=== PATIENT | female | born 1960 | race Caucasian/White ===

== ENCOUNTER → 2016-09-01 | Outpatient (REF) | payer BC | LOC: M SFHCWAGY 14:50 | PROVIDERS: ATTEND Nurse Practitioner Women's Health | DX: Z12.4 Encounter for screening for malignant neoplasm of cervix (principal) ==

== ENCOUNTER → 2016-10-27 | Outpatient (REF) | payer BC | LOC: M SFHCPLAZ 09:25 | PROVIDERS: ATTEND Family Medicine | DX: E66.3 Overweight (principal); Z13.220 Encounter for screening for lipoid disorders ==

== ENCOUNTER → 2016-11-02 | Outpatient (REF) | payer BC | LOC: M SFHCPLAZ 11:55 | PROVIDERS: ATTEND Family Medicine | DX: D49.2 Neoplasm of unspecified behavior of bone, soft tissue, and skin (principal) ==

== ENCOUNTER → 2016-12-07 | Outpatient (CLI) | payer BC ==
--- NOTE | 2016-12-07 12:23 | REP ---
BILATERAL MAMMOGRAM: COMPARISON: 02/12/2014 as well as other prior exams. There is moderate fibroglandular tissue fairly symmetrically bilaterally. However, there is a 7 mm nodular density medially on the left CC view. This is questionably seen on one of the left MLO views in the mid third of the breast at the level of the nipple. No other mass is seen. No clustered microcalcifications are seen. IMPRESSION: ACR 0 incomplete. There appears to be a 7 mm nodular density medially on the left CC view, not clearly seen on the left MLO view, possibly at the level of the nipple in the mid third of the left breast. Recommend spot compression views and ultrasound to further evaluate. BI-RADS/ACR category 0 mammogram, incomplete. Additional imaging and/or prior images are needed before a final assessment can be assigned. This mammogram was interpreted with the aid of an FDA-approved computer-aided detection system. The patient states she/he had a clinical breast exam in 08/2016. The patient letter being requested is M0. Signed by Ralph Jolly MD 12/07/2016 04:02 P
== END ==
LOC: M RAD 09:08
PROVIDERS: ATTEND Nurse Practitioner Women's Health
DX: R92.2 Inconclusive mammogram (principal)

== ENCOUNTER → 2016-12-17 | Outpatient (CLI) | payer BC ==
--- NOTE | 2016-12-17 14:50 | REP ---
DIGITAL DIAGNOSTIC UNILATERAL LEFT BREAST MAMMOGRAPHY WITH CAD: HISTORY: Screening mammography December 07, 2016 was BIRADS category 0 because of a possible 7 mm nodular neodensity. Diagnostic left breast mammography was recommended. Comparison is also made with prior mammography from February 12, 2014 and April 06, 2012. MAMMOGRAPHIC FINDINGS: Magnified focal spot compression CC, MLO and true ML views of the left breast are obtained. These fail to show the nodular density previously noted in the medial left breast. Breast parenchymal markings are unchanged and unremarkable. Non magnified rolled CC views were obtained and these also failed to reveal the density. This is felt to have been spurious due to summation shadow. IMPRESSION: BIRADS category 2 benign left breast mammography. Repeat screening mammography recommended 1 year. BI-RADS/ACR category 2 mammogram. Benign finding(s). Routine annual screening mammography (for women over age 40). This mammogram was interpreted with the aid of an FDA-approved computer-aided detection system. The patient states she/he had a clinical breast exam in August 2016. The patient letter being requested is M#1. Signed by Trever Pizarro MD 12/18/2016 10:02 A
== END ==
LOC: M RAD 12:28
PROVIDERS: ATTEND Nurse Practitioner Women's Health
DX: N63 Unspecified lump in breast (principal)

== ENCOUNTER → 2019-10-10 | Outpatient (REF) | payer BC ==
[2019-10-10 12:56] LABS: ALBUMIN 3.5 GM/DL (3.2-5.2); ALT/SGPT 26 U/L (12-78); BILIRUBIN,TOTAL 0.6 MG/DL (0.2-1.0); BLOOD UREA NITROGEN 21 MG/DL (7-18); CALCIUM LEVEL 8.8 MG/DL (8.5-10.1); CARBON DIOXIDE LEVEL 29 MEQ/L (21-32); CHLORIDE LEVEL 108 MEQ/L (98-107); CHOLESTEROL LEVEL 208 MG/DL (<200); CHOLESTEROL RISK RATIO 2.363 (<5); CREATININE FOR GFR 0.87 MG/DL (0.55-1.30); GLOMERULAR FILTRATION RATE > 60.0 (>51); GLUCOSE, FASTING 81 MG/DL (70-100); HDL CHOLESTEROL 88 MG/DL (>40); LDL CHOLESTEROL 112 MG/DL (<100); NON-HDL-C 120 MG/DL; POTASSIUM SERUM 4.6 MEQ/L (3.5-5.1); SODIUM LEVEL 142 MEQ/L (136-145); TOTAL PROTEIN 6.4 GM/DL (6.4-8.2); TRIGLYCERIDES LEVEL 41 MG/DL (<150)
== END ==
LOC: M PLALAB 10:16
PROVIDERS: ATTEND Family Medicine
DX: Z13.1 Encounter for screening for diabetes mellitus (principal); Z13.220 Encounter for screening for lipoid disorders

== ENCOUNTER → 2019-10-17 | Outpatient (REF) | payer BC | LOC: M SFHCPLAZ 15:10 | PROVIDERS: ATTEND Family Medicine | DX: Z12.4 Encounter for screening for malignant neoplasm of cervix (principal) | CPT/HCPCS: 87624; G0123 ==

== ENCOUNTER → 2020-11-12 | Outpatient (CLI) | payer BC | LOC: M WHC 09:36 | PROVIDERS: ATTEND Family Medicine | DX: Z12.31 Encounter for screening mammogram for malignant neoplasm of breast (principal) ==